=== PATIENT | female | born 1970 | race Caucasian/White ===

== ENCOUNTER 2021-02-04 10:26 | Emergency (ER) | payer SELFPAY ==
[2021-02-04 10:35] VITALS: BP 128/64; PULSE 86; RESP 24; TEMP 36.6; O2SAT 100
--- NOTE | 2021-02-04 11:15 | ED.WOUNDLAC ---
HPI - Wound/Laceration General Chief Complaint: Wound/Laceration Stated Complaint: Laceration to Right Foot/ Swelling Source: patient and RN notes reviewed Mode of arrival: ambulatory Limitations: no limitations History of Present Illness HPI narrative: Catherine is a 50-year-old female patient who ambulated into the [facility]. Patient states she was just discharged a week ago from [facility] for Covid pneumonia, bilateral pulmonary emboli, and questionable A. fib. Patient is currently wearing a heart monitor to monitor for A. fib. Patient comes in stating she has a sore on her right fourth and fifth toe. Patient states she was also scratched by a cat yesterday. Patient has soak the area and Epson salt and that is the only treatment that has been given. Related Data Home Medications Medication Instructions Recorded Confirmed apixaban See Rx Instructions .ROUTE .COMPLEX 02/04/21 02/04/21 metformin 500 mg PO BID 02/04/21 02/04/21 Allergies Allergy/AdvReac Type Severity Reaction Status Date / Time No Known Allergies Allergy Verified 02/04/21 11:17 Review of Systems Review of Systems: CONSTITUTIONAL: Denies body aches, fever, chills, or sweats. EYES: Denies visual changes, redness, or discharge. ENT: Denies rhinorrhea, congestion, sore throat, or otalgia. CARDIOVASCULAR: Denies chest pain, palpitations, or edema. RESPIRATORY: Denies cough or dyspnea. GASTROINTESTINAL: Denies abdominal pain, nausea, vomiting, or diarrhea. GENITOURINARY: Denies dysuria or hematuria. SKIN: Denies rash, itching, right foot open area with redness and swelling, redness up to the gayle. Small quarter size opening on the right panniculi. MUSCULOSKELETAL: Denies back pain, joint pain, or myalgia. NEUROLOGIC: Denies headache, numbness, tingling, or weakness. PSYCH: Denies depression or anxiety. PMFSH Comments At time of signature, I have reviewed and agree with nursing past medical, surgical, social and family history unless otherwise noted. Please see nursing chart for further information. There is no relevant family history pertinent to the presenting complaint Exam Narrative: GENERAL: Ill-appearing, well-nourished, and in no acute distress. HEAD: Normocephalic, atraumatic. EYES: EOMI. No redness or drainage. Conjunctivae normal. ENT: Mucous membranes pink and moist. Nares clear. No rhinorrhea. NECK: Normal AROM. Supple. HEART:irregular rate and rhythm. MUSCULOSKELETAL: No bony tenderness. EXTREMITIES: Normal range of motion. No edema. SKIN: Warm, dry, no rash. Right lower extremity 3+ edema, scattered erythema from ankle to gayle, right 4.5 posterior 2.5x3cm area with foul odor, erythemic, white blanched skin, quarter size healing ulcer right pannicula on RLQ, NEURO: No focal deficits. Alert and oriented x3. Gait steady. PSYCH: Normal affect. No signs of depression or anxiety. Course Vital Signs Vital signs: Vital Signs Temperature 36.6 C 02/04/21 10:35 Pulse Rate 86 02/04/21 10:35 Respiratory Rate 24 H 02/04/21 10:35 Blood Pressure 128/64 02/04/21 10:35 Pulse Oximetry 100 02/04/21 10:35 Temperature 36.6 C 02/04/21 10:35 Pulse Rate 86 02/04/21 10:35 Respiratory Rate 24 H 02/04/21 10:35 Blood Pressure 128/64 02/04/21 10:35 Pulse Oximetry 100 02/04/21 10:35 Reviewed. Pt has been instructed to follow up with his PCP regarding his elevated blood pressure today. MDM - Wound/Laceration MDM Narrative Medical decision making narrative: Patient has 2.5 x 3 cm open area on the posterior right third and fourth toe. Patient has a beefy red center through the 2 layers of skin has white nonblanchable skin surrounding the area. Right foot has 3-4+ edema scattered erythema from ankle to gayle. Patient denies pain to the area. Patient also has a quarter size healing ulcer on the right lower quadrant under right panniculus. Patient states she stepped on something last night because of this
== END 2021-02-04 11:25 | disposition short-term general hospital (02) ==
PROVIDERS: Emergency Provider Nurse Practitioner Family
DX: E11.621 Type 2 diabetes mellitus with foot ulcer (principal); L97.519 Non-pressure chronic ulcer of other part of right foot with unspecified severity; Z79.84 Long term (current) use of oral hypoglycemic drugs; I48.91 Unspecified atrial fibrillation; Z86.16 Personal history of COVID-19
CPT/HCPCS: 99213; G0463

== ENCOUNTER 2022-03-24 14:55 | Emergency (ER) | payer OTHER, SELFPAY ==
[2022-03-24 15:15] VITALS: BP 138/84; PULSE 94; RESP 16; TEMP 36.8; O2SAT 97
--- NOTE | 2022-03-24 15:41 | PC.NURSE ---
Pt presented to urgent care for medical clearance to donate plasma. Brought paperwork stating her hemoglobin was low in her last few donation attempts. Explained to patient that [facility] is unable to do blood work and therefore unable to clear patient for plasma donation, although if patient had any complaints or concerns today, she was welcome to see our provider. Pt stated she was feeling well, had no sick complaints or concerns that she would want to see the provider for. Pt chose to leave before being seen by provider. Was encouraged to follow-up with PCP for clearance, do not donate until cleared.
== END 2022-03-24 15:41 | disposition left against medical advice (07) ==
PROVIDERS: Emergency Provider Nurse Practitioner; PCP Nurse Practitioner Family
DX: Z53.21 Procedure and treatment not carried out due to patient leaving prior to being seen by health care provider (principal)
CPT/HCPCS: 99199